=== PATIENT | male | born 1965 | race African-American/Black ===

== ENCOUNTER 2022-06-09 20:24 | Inpatient (IN) ==
[2022-06-09] MEDS ORDERED: *HR* Etomidate 20 MG/10 ML AMPUL IVP ONE ×2 (20:38→20:47)
[2022-06-09] MEDS ORDERED: 0.9 % Sodium Chloride 1,000 ML ONE (20:44)
[2022-06-09] MEDS ORDERED: Amiodarone Premix 360 MG/200 ML BAG IVC ONE (20:50)
[2022-06-09] MEDS ORDERED: Amiodarone Premix 150 MG/100 ML BAG IVPB ONE (20:50)
[2022-06-09 21:21] LABS: Basophils # 0.1 K/mcL (0.0-0.2); Basophils % 0.6 %; Eosinophils # 0.2 K/mcL (0.0-0.6); Eosinophils % 1.9 %; Hematocrit 49.4 % (37.5-50.1); Hemoglobin 14.9 g/dL (12.9-16.9); Immature Granulocytes % 0.2 % (0-4); Lymphocytes # 3.9 K/mcL (0.6-4.6); Lymphocytes % 47.5 %; Mean Corpuscular HGB Conc 30.2 g/dL (31.6-35.5); Mean Corpuscular Hemoglobin 29.4 pg (28.0-33.3); Mean Corpuscular Volume 97.4 fL (83.0-100.0); Mean Platelet Volume 11.9 fL (9.4-12.4); Monocytes # 0.7 K/mcL (0.0-1.3); Monocytes % 8.9 %; Neutrophils # 3.4 K/mcL (1.6-8.9); Platelet Count 256 K/mcL (140-400); Red Blood Count 5.07 M/mcL (4.19-5.50); Red Cell Distribution Width 13.3 % (11.5-14.5); Segmented Neutrophils % 40.9 %; White Blood Count 8.2 K/mcL (4.3-11.1)
[2022-06-09 21:34] LABS: Alanine Aminotransferase 23 Units/L (7-52); Albumin/Globulin Ratio 1.1 (1.1-2.2); Alkaline Phosphatase 107 Units/L (34-104); Aspartate Amino Transferase 19 Units/L (13-39); BUN/Creatinine Ratio 11 (6-26); Bilirubin,Direct 0.1 mg/dL (0.0-0.2); Bilirubin,Indirect 0.2 mg/dL (0.0-1.0); Bilirubin,Total 0.3 mg/dL (0.3-1.0); Blood Urea Nitrogen 11 mg/dL (6-20); Calcium 9.5 mg/dL (8.6-10.3); Carbon Dioxide 25 mEq/L (23-29); Chloride 102 mEq/L (98-107); Globulin 3.8 g/dL (2.4-3.5); Glucose 432 mg/dL (70-105); Osmolality,Calculated 304 (280-300); Phosphorous 3.6 mg/dL (2.7-4.5); Potassium 3.8 mEq/L (3.5-5.1); Sodium 138 mEq/L (136-145); Total Protein 7.8 g/dL (6.4-8.9); Troponin I < 0.03 ng/mL (< 0.04)
[2022-06-09] MEDS ORDERED: *HR* HYDROcodone/Acet 5/325 mg TABLET PO PRN (21:41)
[2022-06-09] MEDS ORDERED: Ondansetron 4 MG/2 ML VIAL IVP PRN (21:41)
[2022-06-09] MEDS ORDERED: Naloxone 0.4 MG/ML INJ IVP PRN (21:41)
[2022-06-09] MEDS ORDERED: Acetaminophen 325 MG TABLET PO PRN (21:41)
[2022-06-09] MEDS ORDERED: Melatonin 3 MG TABLET PO PRN (21:41)
[2022-06-09] MEDS ORDERED: D5% in Water 1,000 ML IVC PRN (21:46)
[2022-06-09] MEDS ORDERED: Dextrose Gel 15 GM/37.5 ML TUBE PO PRN ×2 (21:46)
[2022-06-09] MEDS ORDERED: *HR* Dextrose 50 % in Water (Syg) 50 ML SYRINGE IVP PRN (21:46)
[2022-06-10] MEDS: Insulin DETEMIR 100 UNIT/ML X5UNITS SUBQ SCH ×2 (00:17→21:24)
[2022-06-10] MEDS: Insulin LISPRO 300 UNITS/3 ML VIAL SUBQ SCH ×4 (00:18→18:00)
[2022-06-10] MEDS ORDERED: INSULIN ASPART SQ SCH (01:15)
[2022-06-10] MEDS ORDERED: Furosemide 20 MG TABLET PO PRN ×2 (01:33→11:34)
[2022-06-10] MEDS ORDERED: diazePAM 5 MG TABLET PO PRN (01:33)
[2022-06-10] MEDS ORDERED: *HR* FentaNYL PATCH 100 MCG PATCH TD SCH (01:45)
[2022-06-10] MEDS: Amiodarone Premix 360 MG/200 ML BAG IVC SCH (03:08)
[2022-06-10] MEDS: Pregabalin 75 MG CAPSULE PO SCH ×3 (03:08→20:15)
[2022-06-10] MEDS: *HR* OxyCODONE Immed Rel 15 MG TABLET PO SCH ×6 (03:08→22:32)
[2022-06-10 04:01] LABS: Basophils % 0.5 %; Eosinophils # 0.2 K/mcL (0.0-0.6); Eosinophils % 2.1 %; Hematocrit 44.5 % (37.5-50.1); Hemoglobin 13.7 g/dL (12.9-16.9); Immature Granulocytes % 0.3 % (0-4); Lymphocytes # 3.4 K/mcL (0.6-4.6); Lymphocytes % 45.3 %; Mean Corpuscular HGB Conc 30.8 g/dL (31.6-35.5); Mean Corpuscular Hemoglobin 29.3 pg (28.0-33.3); Mean Corpuscular Volume 95.3 fL (83.0-100.0); Mean Platelet Volume 11.9 fL (9.4-12.4); Monocytes # 0.7 K/mcL (0.0-1.3); Monocytes % 9.4 %; Neutrophils # 3.2 K/mcL (1.6-8.9); Platelet Count 226 K/mcL (140-400); Red Blood Count 4.67 M/mcL (4.19-5.50); Segmented Neutrophils % 42.4 %; White Blood Count 7.5 K/mcL (4.3-11.1)
[2022-06-10 04:03] LABS: INR 1.1; Prothrombin Time 11.7 Seconds (9.4-12.1)
[2022-06-10 04:27] LABS: Calcium 9.1 mg/dL (8.6-10.3); Chol/HDL Ratio 3.1 (0-4.9); Potassium 3.7 mEq/L (3.5-5.1); Troponin I 0.09 ng/mL (< 0.04)
[2022-06-10] MEDS ORDERED: *HR* Metformin 500 MG TABLET PO SCH (08:00)
[2022-06-10] MEDS: Aspirin 81 MG TAB.CHEW PO SCH (08:30)
[2022-06-10] MEDS ORDERED: TRESIBA 20 UNIT SQ SCH (09:00)
[2022-06-10] MEDS ORDERED: *HR* OxyCODONE Immed Rel 15 MG TABLET PO SCH (11:45)
[2022-06-10] MEDS: Metoprolol XL (24 HR) Succ 50 MG TAB.ER.24H PO SCH (13:06)
[2022-06-10] MEDS ORDERED: *HR* FentaNYL (PF) 100 MCG/2 ML VIAL ONE (14:58)
[2022-06-10] MEDS ORDERED: *HR* Midazolam HCl 2 MG/2 ML VIAL ONE (14:58)
[2022-06-10] MEDS ORDERED: *HR* Heparin 10,000 UNIT/10 ML VIAL ONE (14:58)
[2022-06-10] MEDS ORDERED: 0.9 % Sodium Chloride 2,000 ML ONE (14:58)
[2022-06-10] MEDS ORDERED: Iopamidol - 370 200 ML INFUS..BTL ONE (14:59)
[2022-06-10] MEDS ORDERED: Heparin 1,000 UNITS/500 mL 500 ML ONE (14:59)
[2022-06-10] MEDS ORDERED: Nitroglycerin 1,000 MCG/5 ML VIAL IV ONE (14:59)
[2022-06-10] MEDS ORDERED: Amiodarone Premix 360 MG/200 ML BAG IVC ONE (15:19)
[2022-06-10] MEDS ORDERED: Pregabalin 75 MG CAPSULE PO SCH (21:00)
[2022-06-11] MEDS: Insulin LISPRO 300 UNITS/3 ML VIAL SUBQ SCH ×4 (00:47→17:01)
[2022-06-11] MEDS: *HR* OxyCODONE Immed Rel 15 MG TABLET PO SCH ×8 (01:28→22:30)
[2022-06-11 01:43] LABS: Hematocrit 44.8 % (37.5-50.1); Hemoglobin 13.7 g/dL (12.9-16.9); Mean Corpuscular HGB Conc 30.6 g/dL (31.6-35.5); Mean Corpuscular Hemoglobin 29.7 pg (28.0-33.3); Mean Platelet Volume 11.9 fL (9.4-12.4); Platelet Count 220 K/mcL (140-400); Red Blood Count 4.62 M/mcL (4.19-5.50); Red Cell Distribution Width 13.4 % (11.5-14.5); White Blood Count 6.7 K/mcL (4.3-11.1)
[2022-06-11] MEDS ORDERED: Insulin Human Regular 10 UNIT in 0.9 % Sodium Chloride 10 ML IV ONE (01:47)
[2022-06-11] MEDS: Amiodarone Premix 360 MG/200 ML BAG IVC SCH (02:22)
[2022-06-11] MEDS: Metoprolol XL (24 HR) Succ 50 MG TAB.ER.24H PO SCH (07:22)
[2022-06-11] MEDS: Aspirin 81 MG TAB.CHEW PO SCH (07:22)
[2022-06-11] MEDS: Pregabalin 75 MG CAPSULE PO SCH ×2 (07:22→19:31)
[2022-06-11] MEDS: Sacubitril/Valsartan 24/26 MG 1 TABLET PO SCH ×3 (09:33→19:31)
[2022-06-11 09:58] LABS: BUN/Creatinine Ratio 20 (6-26); Blood Urea Nitrogen 13 mg/dL (6-20); Calcium 8.8 mg/dL (8.6-10.3); Carbon Dioxide 22 mEq/L (23-29); Chloride 111 mEq/L (98-107); Glucose 148 mg/dL (70-105); Osmolality,Calculated 293 (280-300); Sodium 140 mEq/L (136-145)
[2022-06-11] MEDS: *HR* Amiodarone 200 MG TABLET PO SCH (13:55)
[2022-06-11] MEDS: Insulin DETEMIR 100 UNIT/ML X5UNITS SUBQ SCH (19:32)
[2022-06-12] MEDS: Insulin LISPRO 300 UNITS/3 ML VIAL SUBQ SCH ×5 (00:21→22:37)
[2022-06-12] MEDS: *HR* OxyCODONE Immed Rel 15 MG TABLET PO SCH ×8 (01:42→22:37)
[2022-06-12] MEDS: Pregabalin 75 MG CAPSULE PO SCH ×2 (07:24→19:47)
[2022-06-12] MEDS: *HR* Amiodarone 200 MG TABLET PO SCH (07:24)
[2022-06-12] MEDS: Aspirin 81 MG TAB.CHEW PO SCH (07:25)
[2022-06-12] MEDS: Sacubitril/Valsartan 24/26 MG 1 TABLET PO SCH ×2 (07:25→19:47)
[2022-06-12] MEDS: Metoprolol XL (24 HR) Succ 50 MG TAB.ER.24H PO SCH (07:25)
[2022-06-12] MEDS: Insulin DETEMIR 100 UNIT/ML X5UNITS SUBQ SCH (22:37)
[2022-06-13] MEDS: *HR* OxyCODONE Immed Rel 15 MG TABLET PO SCH ×8 (01:39→22:49)
[2022-06-13] MEDS: Sacubitril/Valsartan 24/26 MG 1 TABLET PO SCH ×2 (07:27→20:04)
[2022-06-13] MEDS: Pregabalin 75 MG CAPSULE PO SCH ×2 (07:27→20:05)
[2022-06-13] MEDS: Metoprolol XL (24 HR) Succ 50 MG TAB.ER.24H PO SCH (07:27)
[2022-06-13] MEDS: *HR* Amiodarone 200 MG TABLET PO SCH (07:27)
[2022-06-13] MEDS: Aspirin 81 MG TAB.CHEW PO SCH (07:27)
[2022-06-13] MEDS: Insulin LISPRO 300 UNITS/3 ML VIAL SUBQ SCH ×4 (07:30→20:06)
[2022-06-13] MEDS: Insulin DETEMIR 100 UNIT/ML X5UNITS SUBQ SCH (20:05)
[2022-06-14] MEDS: *HR* OxyCODONE Immed Rel 15 MG TABLET PO SCH ×8 (01:40→23:51)
[2022-06-14] MEDS: Sacubitril/Valsartan 24/26 MG 1 TABLET PO SCH ×2 (07:56→20:55)
[2022-06-14] MEDS: Pregabalin 75 MG CAPSULE PO SCH ×2 (07:56→20:56)
[2022-06-14] MEDS: Aspirin 81 MG TAB.CHEW PO SCH (07:56)
[2022-06-14] MEDS: *HR* Amiodarone 200 MG TABLET PO SCH (07:56)
[2022-06-14] MEDS: Metoprolol XL (24 HR) Succ 50 MG TAB.ER.24H PO SCH (07:56)
[2022-06-14] MEDS: Insulin LISPRO 300 UNITS/3 ML VIAL SUBQ SCH ×4 (07:59→20:55)
[2022-06-14] MEDS: Insulin DETEMIR 100 UNIT/ML X5UNITS SUBQ SCH (20:55)
[2022-06-15 02:15] LABS: Basophils % 0.2 %; Eosinophils # 0.1 K/mcL (0.0-0.6); Eosinophils % 2.5 %; Hematocrit 43.3 % (37.5-50.1); Hemoglobin 13.2 g/dL (12.9-16.9); Immature Granulocytes % 0.2 % (0-4); Lymphocytes # 2.3 K/mcL (0.6-4.6); Lymphocytes % 44.4 %; Mean Corpuscular HGB Conc 30.5 g/dL (31.6-35.5); Mean Corpuscular Hemoglobin 29.1 pg (28.0-33.3); Mean Corpuscular Volume 95.6 fL (83.0-100.0); Mean Platelet Volume 11.8 fL (9.4-12.4); Monocytes # 0.6 K/mcL (0.0-1.3); Monocytes % 10.7 %; Neutrophils # 2.2 K/mcL (1.6-8.9); Platelet Count 204 K/mcL (140-400); Red Blood Count 4.53 M/mcL (4.19-5.50); Red Cell Distribution Width 13.2 % (11.5-14.5); White Blood Count 5.2 K/mcL (4.3-11.1)
[2022-06-15 02:29] LABS: BUN/Creatinine Ratio 15 (6-26); Blood Urea Nitrogen 13 mg/dL (6-20); Calcium 9.2 mg/dL (8.6-10.3); Carbon Dioxide 29 mEq/L (23-29); Chloride 106 mEq/L (98-107); Glucose 324 mg/dL (70-105); Osmolality,Calculated 305 (280-300); Potassium 4.7 mEq/L (3.5-5.1); Sodium 141 mEq/L (136-145)
[2022-06-15] MEDS: *HR* OxyCODONE Immed Rel 15 MG TABLET PO SCH ×8 (02:58→23:04)
[2022-06-15] MEDS: Aspirin 81 MG TAB.CHEW PO SCH (07:51)
[2022-06-15] MEDS: Pregabalin 75 MG CAPSULE PO SCH ×2 (07:51→19:36)
[2022-06-15] MEDS: Metoprolol XL (24 HR) Succ 50 MG TAB.ER.24H PO SCH ×2 (07:51→19:40)
[2022-06-15] MEDS: *HR* Amiodarone 200 MG TABLET PO SCH (07:51)
[2022-06-15] MEDS: Sacubitril/Valsartan 24/26 MG 1 TABLET PO SCH ×2 (07:51→19:37)
[2022-06-15] MEDS: Insulin LISPRO 300 UNITS/3 ML VIAL SUBQ SCH ×4 (09:36→19:37)
[2022-06-15] MEDS ORDERED: *HR* Midazolam HCl 2 MG/2 ML VIAL ONE ×2 (11:38→13:05)
[2022-06-15] MEDS ORDERED: *HR* FentaNYL (PF) 100 MCG/2 ML VIAL ONE ×2 (11:38→14:54)
[2022-06-15] MEDS ORDERED: Clindamycin 600 MG/50 ML 1,200 MG/100 ML IV.SOLN IVPB ONE (11:39)
[2022-06-15] MEDS ORDERED: 0.9 % Sodium Chloride 1,000 ML ONE ×2 (11:39)
[2022-06-15] MEDS ORDERED: Iopamidol - 300 100 ML INFUS..BTL ONE (12:21)
[2022-06-15] MEDS: Clindamycin 600 MG/50 ML 600 MG/50 ML IV.SOLN IVPB SCH (19:37)
[2022-06-15] MEDS: Insulin DETEMIR 100 UNIT/ML X5UNITS SUBQ SCH (19:37)
[2022-06-16] MEDS: *HR* OxyCODONE Immed Rel 15 MG TABLET PO SCH ×3 (02:18→09:12)
[2022-06-16] MEDS: Clindamycin 600 MG/50 ML 600 MG/50 ML IV.SOLN IVPB SCH (03:19)
[2022-06-16 07:42] VITALS: BP 140/75; PULSE 80; TEMP 98.5; O2SAT 96
[2022-06-16] MEDS: Insulin LISPRO 300 UNITS/3 ML VIAL SUBQ SCH (08:06)
[2022-06-16] MEDS: Metoprolol XL (24 HR) Succ 50 MG TAB.ER.24H PO SCH (08:07)
[2022-06-16] MEDS: Sacubitril/Valsartan 24/26 MG 1 TABLET PO SCH (08:07)
[2022-06-16] MEDS: Pregabalin 75 MG CAPSULE PO SCH (08:07)
[2022-06-16] MEDS: *HR* Amiodarone 200 MG TABLET PO SCH (08:07)
[2022-06-16] MEDS: Aspirin 81 MG TAB.CHEW PO SCH (08:07)
== END 2022-06-16 11:55 | disposition home or self-care (01) | DRG 225 ==
LOC: 2NNU 20:24 → EMEROOARM 20:24 → 2NNU 23:41 → SUATTDRO 06-10 11:31
PROVIDERS: ADMIT Internal Medicine; ATTEND Family Medicine